=== PATIENT | female | born 1975 | race African-American/Black ===

== ENCOUNTER 2017-01-04 10:32 | Emergency (ER) | payer MEDICAID ==
[~2017-01-04] VITALS: Ht 165.1 cm; Wt 89.8 kg
[2017-01-04 10:51] VITALS: BP 130/72
== END 2017-01-04 11:49 | disposition home or self-care (01) ==
LOC: ER 10:32
DX: S61.210A Laceration without foreign body of right index finger without damage to nail, initial encounter (principal); J45.909 Unspecified asthma, uncomplicated; Z90.49 Acquired absence of other specified parts of digestive tract; X99.1XXA Assault by knife, initial encounter; Y93.89 Activity, other specified; Y99.8 Other external cause status; Y92.89 Other specified places as the place of occurrence of the external cause
CPT/HCPCS: 12001